=== PATIENT | male | born 1975 | race Caucasian/White ===

== ENCOUNTER 2017-10-23 09:47 | Emergency (ER) | payer OTHER ==
[2017-10-23 10:10] VITALS: BP 134/104; PULSE 109; TEMP 98.1; BMI 47.2
[2017-10-23] MEDS ORDERED: IBUPROFEN 600 MG TABLET (FP) PO ONE ×2 (11:43→11:44)
--- NOTE | 2017-10-23 11:50 | PDOC ---
History of Present Illness - General Chief Complaint: Injury Stated Complaint: FALL/ LT ANKLE PAIN Time Seen by Provider: 10/23/17 11:12 History Source: Patient Exam Limitations: No Limitations - History of Present Illness Initial Comments: 10/23/17 11:45 42 yr old male who works as a community organization worker for the [employer] presents to the ED with complaints of left ankle pain. Patient states 6 days ago was getting off of the garbage truck when he slipped on a Gatorade bottle. He elevated and wrapped it with an James bandage but states symptoms continue. Patient states is able to move the extremity but has pain with rotation. Patient denies previous injury to the affected area and denies any sensory changes distal of the injury. Occurred: reports: last week Severity: reports: mild Pain Location: reports: lower extremity Method of Injury: Yes: fall Associated Symptoms (Fall): denies symptoms Past History - Past Medical History Allergies/Adverse Reactions: Allergies Allergy/AdvReac Type Severity Reaction Status Date / Time No Known Allergies Allergy Verified 10/23/17 10:07 Home Medications: Ambulatory Orders NK [No Known Home Medication] 10/23/17 COPD: No Hypercholesterolemia: Yes (no meds) - Suicide/Smoking/Psychosocial Hx Smoking History: Former smoker Have you smoked in the past 12 months: Yes Number of Cigarettes Smoked Daily: 40 Information on smoking cessation initiated: No Hx Alcohol Use: No Patient Lives Alone: No Lives with/in: spouse/SO Review of Systems - Review of Systems Able to Perform ROS?: Yes Constitutional: No: Symptoms Reported Musculoskeletal: Yes: Joint Pain (left ankle), Joint Swelling (left ankle) Integumentary: No: Change in Color Neurological: No: Symptoms reported Hematologic/Lymphatic: No: Symptoms Reported *Physical Exam - Vital Signs Last Vital Signs Temp Pulse Resp BP Pulse Ox 98.1 F 109 H 17 134/104 97 10/23/17 10:07 10/23/17 10:07 10/23/17 10:07 10/23/17 10:07 10/23/17 10:07 - Physical Exam General Appearance: Yes: Nourished, Appropriately Dressed. No: Apparent Distress Extremity: positive: Normal Capillary Refill, Normal Inspection, Normal Range of Motion, Tender (medial aspect of left malleolus) Integumentary: positive: Normal Color, Warm, Moist, Swelling (generalized left ankle) Neurologic: positive: Normal Mood/Affect, Motor Strength 5/5 (ambulatory with slight limp) ED Treatment Course - RADIOLOGY Radiology Studies Ordered: Category Date Time Status ANKLE-LEFT [RAD] Stat Radiology 10/23/17 11:43 Ordered - Medications Given in the ED: ED Medications Discontinued Medications Generic Name Dose Route Start Last Admin Trade Name Sherin PRN Reason Stop Dose Admin Ibuprofen 600 mg 10/23/17 11:43 10/23/17 11:44 Motrin - PO 10/23/17 11:44 600 mg ONCE ONE Administration Medical Decision Making - Medical Decision Making 10/23/17 11:50 Patient here for complaints of left ankle pain after slipping ligated bottle. Patient with tenderness over the medial aspect of left malleolus. Patient ordered for ankle x-ray and Motrin. 10/23/17 12:30 xray - for fx. James wrap ordered. If pain continues pt to follow up with referred orthopedist *DC/Admit/Observation/Transfer Diagnosis at time of Disposition: Ankle sprain - Discharge Dispostion Disposition: HOME Condition at time of disposition: Good - Referrals Referrals: Graham Jacinto [Primary Care Provider] - Cristopher Saunders MD [Staff Physician] - - Patient Instructions Printed Discharge Instructions: DI for Ankle Sprain Additional Instructions: Please continue to take motrin for inflammation and pain. Please use James wrap during the day and remove at night. If pain continues please follow up with referred orthopedist - Post Discharge Activity
== END 2017-10-23 12:39 | disposition home or self-care (01) ==
LOC: JERFT 09:47
DX: S93.402A Sprain of unspecified ligament of left ankle, initial encounter (principal); V64 Occupant of heavy transport vehicle injured in collision with heavy transport vehicle or bus; Y92.414 Local residential or business street as the place of occurrence of the external cause; Y99.0 Civilian activity done for income or pay; Y93.H9 Activity, other involving exterior property and land maintenance, building and construction
CPT/HCPCS: 73610-TC-LT-FY; 99281-25